=== PATIENT | male | born 1990 | race Caucasian/White ===

== ENCOUNTER 2017-12-15 21:15 | Emergency (ER) | payer SELFPAY ==
[2017-12-15] MEDS ORDERED: CHLORHEXIDINE GLUCONATE 4 % 15 ML UD TOP ONE ×2 (21:17→23:25)
[2017-12-15] MEDS ORDERED: LIDOCAINE 1% 10 ML VIAL INJ ONE ×2 (21:33→23:33)
[2017-12-15] MEDS ORDERED: BUPIVACAINE 0.5% 30 ML VIAL INJ ONE (21:33)
--- NOTE | 2017-12-15 21:38 | ED.PDOC ---
History of Present Illness - General Chief Complaint: Laceration Stated Complaint: right hand 1st, 2nd, 3rd digit laceration Time Seen by Provider: 12/15/17 21:34 Source: patient Exam Limitations: no limitations - History of Present Illness Initial Comments: TRIPPED WITH KNIFE IN HAND SUSTAINING LACERATION TO INDEX, MID, AND RING FINGER. CANNOT MOVE RING FINGER. Severity: moderate Improving Factors: nothing Worsening Factors: nothing Associated Symptoms: other - NUMBNESS TO INDEX FINGER. Home Medications: Ambulatory Orders Cephalexin Monohydrate [Keflex] 500 mg PO TID #30 cap 12/16/17 Tramadol HCl [Ultram] 50 mg PO Q6HR PRN #15 tab 12/16/17 Review of Systems - Review of Systems Musculoskeletal: Denies: joint swelling, muscle pain Skin: States: other - LACERATIONS TO FINGERS Neurological: States: numbness, weakness Hematologic/Lymphatic: States: no symptoms reported Physical Exam - Physical Exam General Appearance: No apparent distress, Obese Eyes, Ears, Nose, Throat Exam: PERRL/EOMI, normal ENT inspection Extremity: other - LACERATION R HAND 2-3-4 DIGITS, GOOD CAP REFILL, LACS ARE AT THE PIP JTS. 3-4 FINGERS ARE FLEXED. EXTENSION IS POSSIBLE WITH ALL DIGITS BUT NO FLEXION 4TH. FLEXION PRESENT BUT DIMINISHED 2-3 DIGITS. Neurologic: no motor/sensory deficits, alert Skin Exam: other - LACERATIONS NOTED ABOVE Progress - EKG/XRAY/CT XRAY: hand - DARON Procedures - Laceration/Wound Repair Right Finger Wound Length (cm): 8 Wound's Depth, Shape: linear Wound Explored: clean Betadine Prep?: No - HIBICLEANSE Volume Anesthetic (cc's): 14 - DIGITAL BLOCK, LIDOCAINE/MARCAINE AND LOCAL Wound Repaired With: sutures Suture Size/Type: 4:0, prolene Layer Closure?: No Sterile Dressing Applied?: Yes Splint Applied?: Yes Sling Applied?: No Progress: PT WITH COMPLETE TENDON INJURY 4TH FINGER, PARTIAL INJURY 3RD, FLEXOR FUNCTION INTACT, INDEX. Departure - Departure Clinical Impression: Laceration of finger of right hand with tendon involvement Qualifiers: Encounter type: initial encounter Qualified Code(s): S61.219A - Laceration without foreign body of unspecified finger without damage to nail, initial encounter Time of Disposition: 00:28 Disposition: Discharge to Home or Self Care Condition: Good Departure Forms: ED Discharge - Pt. Copy, Patient Portal Self Enrollment Instructions: DI for Laceration Repair Referrals: Brian Puente MD [Referring] - 12/17/17 (CALL SUNDAY FOR APPT. ) Prescriptions: Tramadol HCl [Ultram] 50 mg PO Q6HR PRN #15 tab PRN Reason: Pain Cephalexin Monohydrate [Keflex] 500 mg PO TID #30 cap Home Medications: Ambulatory Orders Cephalexin Monohydrate [Keflex] 500 mg PO TID #30 cap 12/16/17 Tramadol HCl [Ultram] 50 mg PO Q6HR PRN #15 tab 12/16/17
[2017-12-15] MEDS: HYDROcodone 10MG/APAP 325MG 1 EA TAB PO ONE (22:12)
--- NOTE | 2017-12-15 22:15 | RAD ---
EXAM DESCRIPTION: Hand,Right 3 Views CLINICAL HISTORY: 27 years Male, LACERATION FINGERS COMPARISON: None. FINDINGS: No fracture or dislocation. Soft tissues are unremarkable. IMPRESSION: No acute abnormality. Electronically signed by: Mohamud Bowen DO 12/15/2017 10:13 PM CDT
[2017-12-16 01:13] VITALS: TEMP 98.1
[2017-12-16 01:20] VITALS: BP 120/82; O2SAT 100
== END 2017-12-16 01:00 | disposition home or self-care (01) ==
LOC: ER 21:15
DX: S66.124A Laceration of flexor muscle, fascia and tendon of right ring finger at wrist and hand level, initial encounter (principal); S61.212A Laceration without foreign body of right middle finger without damage to nail, initial encounter; S61.214A Laceration without foreign body of right ring finger without damage to nail, initial encounter; W18.09XA Striking against other object with subsequent fall, initial encounter; Y92.9 Unspecified place or not applicable

== ENCOUNTER 2018-01-05 14:57 | Emergency (ER) | payer SELFPAY ==
[2018-01-05 15:11] VITALS: BP 159/98; TEMP 98.7; O2SAT 100
[2018-01-05] MEDS ORDERED: DOXYCYCLINE TAB (ER DISPENSE) 100 MG CAP PO ONE (15:57)
[2018-01-05] MEDS ORDERED: TETANUS,DIPHTHERIA,PERTUSSIS 1 EA SYG IM ONE (15:58)
--- NOTE | 2018-01-05 16:04 | ED.PDOC ---
History of Present Illness - General Chief Complaint: Bite: Animal/Insect/Human Time Seen by Provider: 01/05/18 15:55 Source: patient Exam Limitations: no limitations - History of Present Illness Initial Comments: unprovoked attack from stray cat with bite and scatch to L lower leg last pm Severity: mild Improving Factors: nothing Worsening Factors: nothing Associated Symptoms: denies symptoms Allergies/Adverse Reactions: Allergies Sulfa Antibiotics Allergy (Verified 12/16/17 01:00) Home Medications: Ambulatory Orders Cephalexin Monohydrate [Keflex] 500 mg PO TID #30 cap 12/16/17 Tramadol HCl [Ultram] 50 mg PO Q6HR PRN #15 tab 12/16/17 Doxycycline (Monohydrate) [Doxycycline] 100 mg PO BID #14 cap 01/05/18 Review of Systems - Review of Systems Constitutional: States: no symptoms reported Musculoskeletal: States: no symptoms reported Skin: States: lesions Neurological: States: no symptoms reported Past Medical History (General) - Patient Medical History Hx Seizures: No Hx Stroke: No Hx Dementia: No Hx Asthma: No Hx of COPD: No Hx Cardiac Disorders: No Hx Congestive Heart Failure: No Hx Pacemaker: No Hx Hypertension: No Hx Thyroid Disease: No Hx Diabetes: No Hx Gastroesophageal Reflux: No Hx Renal Disease: No Hx Cancer: No Hx of HIV: No Hx Hepatitis C: No Hx MRSA: No - Vaccination History Hx Tetanus, Diphtheria Vaccination: No Hx Influenza Vaccination: No - Social History Hx Tobacco Use: Yes Family Medical History - Family History Mother Living Status: Still Living Physical Exam - Physical Exam General Appearance: Alert, No apparent distress Extremity: normal range of motion, non-tender Skin Exam: normal color, warm/dry, other - two puncture wounds to L lower leg laterally Lymphatic: no adenopathy Departure - Departure Clinical Impression: Bite wound Disposition: Discharge to Home or Self Care Departure Forms: ED Discharge - Pt. Copy, Patient Portal Self Enrollment Referrals: Andrew Sykes MD [Primary Care Provider] - 1-2 Weeks Prescriptions: Doxycycline (Monohydrate) [Doxycycline] 100 mg PO BID #14 cap Home Medications: Ambulatory Orders Cephalexin Monohydrate [Keflex] 500 mg PO TID #30 cap 12/16/17 Tramadol HCl [Ultram] 50 mg PO Q6HR PRN #15 tab 12/16/17 Doxycycline (Monohydrate) [Doxycycline] 100 mg PO BID #14 cap 01/05/18 Comments: contact animal control to find and test animal
[2018-01-05] MEDS ORDERED: DOXYCYCLINE HYCLATE CAP 100 MG CAP PO ONE (16:06)
== END 2018-01-05 16:41 | disposition home or self-care (01) ==
LOC: ER 14:57
DX: S81.852A Open bite, left lower leg, initial encounter (principal); W55.01XA Bitten by cat, initial encounter; Z23 Encounter for immunization; Z88.2 Allergy status to sulfonamides; Z87.891 Personal history of nicotine dependence